=== PATIENT | female | born 1950 | race Caucasian/White ===

== ENCOUNTER 2024-10-04 12:02 | Observation (INO) ==
--- NOTE | 2024-10-04 12:05 | Emergency Department Note ---
HPI - Abdominal Pain General Chief Complaint: GI Bleed Stated Complaint: BLEEDING Time Seen by Provider: 10/04/24 12:05 Source: patient Mode of arrival: walk-in Limitations: no limitations History of Present Illness HPI narrative: 74-year-old female presents to ER with complaint of Diarrhea with rectal bleeding times one day and leg pain that radiates down both legs behind the knees and on top knees then into the calves times three days. Patient is on eliquis and effient blood thinners. MD elicited complaint: abdominal pain and other (Diarrhea with mary jo blood, leg pain) Pertinent past history: myocardial infarction, past UTI and other (Angioplasty) Onset (ago): day(s) (1) Pain Consistency: constant Location: diffuse (Abdominal) and other (Bilateral legs) Severity: moderate Quality: cramping, aching and sharp Radiation: none Migration to: no migration Exacerbating factors: bowel movement and movement Relieving factors: nothing Context: other (None known) Associated symptoms: diarrhea, constipation (Prior to diarrhea starting) and hematochezia Treatments prior to arrival: other (None) Related Data Patient : No Patient lactating: No Home Medications Medication Instructions Recorded Confirmed atorvastatin 80 mg tablet 40 mg PO DAILY 07/23/24 07/23/24 colchicine 0.6 mg tablet 0.6 mg PO DAILY 07/23/24 07/23/24 ergocalciferol (vitamin D2) 1,250 1,250 mcg PO .WEEKLY 07/23/24 07/23/24 mcg (50,000 unit) capsule losartan 50 mg-hydrochlorothiazide 1 tab PO BID 07/23/24 07/23/24 12.5 mg tablet metoprolol tartrate 50 mg tablet 25 mg PO BID 07/23/24 07/23/24 Allergies Allergy/AdvReac Type Severity Reaction Status Date / Time Penicillins Allergy Mild Verified 10/04/24 14:15 hydrocodone Allergy Verified 10/04/24 14:15 Review of Systems Status of ROS 10 or more systems reviewed and unremark able except as noted in history and below Constitutional Denies: fever, chills, change in weight, fatigue, malaise, night sweats, change in sleep pattern or other Eyes Denies: change in vision, blurry vision, blind spots, light sensitivity, eye discomfort, eye discharge, dry eyes, increased production of tears, floaters, seeing flashes or decreased night vision Ears, nose, mouth, and throat Denies: throat pain, neck pain, throat swelling, difficulty swallowing, hoarseness, mouth pain, swelling of lips/tongue, dry mouth, bad breath, ear pain, ear discharge, change in hearing, tinnitus, vertigo, nasal discharge, nasal congestion, nose bleeds or post nasal drip Cardiovascular Denies: chest pain, palpitations, edema, swelling of feet/ankles, lightheadedness, shortness of breath with exertion, shortness of breath when lying down, leg pain with exertion or bluish discoloration of hands/feet Respiratory Denies: shortness of breath, cough, wheezing, stridor, pain on inspiration, change in phlegm color, coughing up blood or chest congestion Gastrointestinal Reports: abdominal pain, diarrhea, change in stool character and blood in stool; Denies: nausea, vomiting, coffee grounds in vomit, heartburn, constipation, bloating, belching, excessive passing of gas, difficulty swallowing, feeling full early, change in bowel habits, painful bowel movements, rectal pain, rectal swelling, rectal itching, mucus in stool, white/light colored stool or fatty stool Genitourinary Denies: painful urination, urinary frequency, urinary urgency, urinary incontinence, blood in urine, difficulty voiding, decreased urine ouput, pelvic pain, painful menstruation, vaginal bleeding, vaginal discharge, irregular period, change in menstrual flow, absence of menstruation, genital lesion, genital itching, vaginal dryness, vaginal odor, pain during intercourse, difficulty conceiving or change in libido Musculoskeletal Reports: extremity pain, muscle cramps and muscle weakness; Denies: back pain, neck pain, extremity swelling, joint pain, limited range of motion, joint swelling or loss of height Integumentary/Breast Denies: rash, itching, redness, skin pain, skin ten derness, skin swelling, sores, new lesion, changing lesion, non-healing lesion, changes in skin color, jaundice, stretch hughes, acne, nail changes, change in hair, breast pain, breast swelling, nipple discharge, breast mass, breast skin changes or change in breast shape Neurological Reports: headache; Denies: numbness in extremities, weakness in extremities, lack of coordination, dizziness, vertigo, confusion, behavioral changes, slurred speech, difficulty communicating thoughts, seizure-like activity or involuntary movements Psychiatric Reports: anxiety; Denies: mood swings, panic attacks, change in sleep pattern, hopelessness, loss of interest, irritability, paranoia, memory loss, difficulty concentrating, visual hallucinations, auditory hallucinations, tactile hallucinations, suicidal ideation or homicidal ideation Endocrine Denies: excessive urination, excessive thirst, fatigue, cold intolerance, excessive sweating, flushing, heat intolerance, deepening of the voice, change in body appearance or change in libido Hematologic/Lymphatic Reports: easy bruising; Denies: easy bleeding or enlarged lymph nodes Allergic/Immunologic Denies: hives, throat swelling, tongue swelling, facial swelling, wheezing, itchy eyes, seasonal allergies or food intolerance PFSH PFSH Medical History Gout Hyperlipidemia A-fib HTN (hypertension) Surgical History History of cholecystectomy H/O: hysterectomy H/O heart artery stent Social History Smoking status: never smoker Feel stressed/tense/nervous/anxious/difficulty sleeping: rather much Life stressors: other (none) Life stressor details: Current medical condition Due to disability, difficulty making decisions: No Exam Constitutional: normal general appearance, distress noted (moderate), abnormal body habitus (obese), no limitations and alert Vital Signs - 24 hr 10/04/24 12:02 10/04/24 12:32 10/04/24 13:01 Temperature 98 F Pulse Rate 54 L 52 L 52 L Respiratory Rate 16 16 16 Blood Pressure 180/73 197/92 184/68 Pulse Oximetry 97 97 97 Oxygen Delivery Me thod Room Air Room Air Room Air HENMT: normocephalic, head/scalp atraumatic, hearing grossly normal bilaterally, external ears normal, nasal mucous membranes normal, external nose normal, oral mucous membranes normal, oropharynx normal, dentition normal and gingiva normal Eyes: PERRL, EOMs intact bilaterally, conjunctivae normal, no scleral icterus, no papilledema, normal visual good by confrontation, alignment normal, periorbital findings normal and no nystagmus Neck/C-Spine: visual inspection normal, trachea midline, cervical spine nontender, cervical full ROM noted and supple Lymph: no lymphadenopathy noted and no lymphedema noted Chest: inspection of chest normal, inspection of breast(s) abnormal (deferred) and palpation of breast(s) abnormal (deferred) Respiratory: breath sounds equal bilaterally, normal respiratory effort, clear to auscultation bilaterally, no wheezes, no rales, no retractions and no use of accessory muscles Cardiovascular: normal heart rate noted, regular rhythm noted, no gallop, no JVD, peripheral pulses 2+ throughout and no additional abnormal heart sounds Gastrointestinal: abdomen normal to inspection, abdomen soft to palpation, tender to palpation (diffuse abd pain) (moderate), distended, normoactive bowel sounds, no hepatosplenomegaly, no masses, no pulsatile mass, no ascites and rectal exam abnormal (deferred) Genitourinary: no CVA tenderness, bladder normal to palpation, vaginal abnormality noted (deferred) and cervical abnormality noted (deferred) Back/Pelvis: spine normal to inspection Extremities: normal to inspection, normal to palpation, tenderness noted, full ROM, no joint enlargement and no deformity Pain in bilateral lower extremities x 3 days, increased pain on palpation and with range of motion. Neurology: technical delivery manager II-XII intact, no movement abnormality noted, no focal motor deficit noted, no sensory deficits noted, gait normal, speech normal, coordination normal, no pronator drift noted, no fasciculations noted and GCS normal Psychiatry: Mental Status Exam documented within this Exam's Psych section mental status grossly normal, oriented x3, thought process normal, cooperative, affect normal, psychomotor activity normal and memory normal Feel stressed/tense/nervous/anxious/difficulty sleeping: rather much Life stressors: other (none) Life stressor details: Current medical condition Due to disability, difficulty making decisions: No Skin: skin color normal, no rash, no lesions, no ecchymosis noted, no wounds, no lacerations, skin turgor normal, no jaundice, no petechiae, no mottling, nails normal and no alopecia Course Course Hospital Course: 74-year-old female that presented to ER with complaint of 1 day onset of diarrhea with mary jo blood in her stool and 3-day onset of bilateral leg pain that goes down the buttocks behind the thighs and around to the top of the knees and then back down into the calves x 3 days has been evaluated by physical exam, CBC, CMP, urinalysis, magnesium, D-dimer, serial troponins, occult blood, urinalysis, urine culture, swabs for flu and COVID, and CT of the abdomen pelvis with contrast and plain film chest x-ray results as noted in charting. Patient's lab work reveals dehydration, urinary tract infection, positive occult stool, negative troponins, chest x-ray reveals no acute cardiopulmonary process, CT of the abdomen pelvis reveals no acute free fluid in the belly, and there is no acute process in the abdomen or pelvis. Patient's EKG is unremarkable and patient continues to have leg pain despite several administrations of medication including Norflex IV 30 mg, 1 mg Dilaudid IV, morphine 4 mg IV, 1 mg Requip p.o., and patient is also received 400 mg Cipro IV for urinary tract infection. Patient will be admitted to the [facility] floor for ongoing IV antibiotic therapy, continue treatment for her rectal bleeding, reevaluation by CT in the morning with p.o. contrast. Patient and family have been made aware of necessity for admission and agree with treatment pathway. Vital Signs Vital signs: Vital Signs Temperature 98 F 10/04/24 12:02 Pulse Rate 54 L 10/04/24 12:02 Respiratory Rate 16 10/04/24 12:02 Blood Pressure 180/73 10/04/24 12:02 Pulse Oximetry 97 10/04/24 12:02 Oxygen Delivery Method Room Air 10/04/24 12:02 Temperature 98 F 10/04/24 12:02 Pulse Rate 52 L 10/04/24 13:01 Respiratory Rate 16 10/04/24 13:01 Blood Pressure 184/68 10/04/24 13:01 Pulse Oximetry 97 10/04/24 13:01 Oxygen Delivery Method Room Air 10/04/24 13:01 MDM - Abdominal Pain MDM Narrative Medical decision making narrative: Medical Decision Making this patient involved physical exam, CBC, CMP, magnesium, D-dimer, serial troponins, occult blood, urinalysis, EKG, chest x- ray, CT of the abdomen pelvis with contrast, and urine culture. Differential Diagnosis Differential diagnosis: Likely abdominal pain, constipation, diverticulitis, gastroenteritis, small bowel obstruction and other (UTI) Medical Records Attestation: I reviewed the patient's medical records. Lab Data Attestation: I reviewed the patient's lab results. Labs: Lab Results 10/04/24 10/04/24 10/04/24 Range/Units 12:30 13:02 13:20 WBC 9.4 H (4.3-9.3) K/uL RBC 4.6 (4.00-5.50) M/uL Hgb 14.3 (12.5-15.8) gm/dL Hct 42.9 (35.9-46.7) % MCV 93.7 (81.0-93.7) fl MCH 31.2 (27.6-32.2) pg MCHC 33.2 (33.1-35.3) g/dl RDW 13.7 (11.4-14.2) % Plt Count 269 (152-353) K/uL MPV 8.3 (6.9-10.8) fl Gran % 58.0 (47.8-71.3) % Lymph % (Auto) 28.5 (20.0-43.0) % [place] % (Auto) 11.2 H (3.6-9.8) % Eos % (Auto) 1.8 (0.4-2.8) % Baso % (Auto) 0.5 (0.1-0.85) Lymph # (Auto) 2.7 (1.1-3.1) [place] # (Auto) 1.0 L (1.1-3.1) Eos # (Auto) 0.2 (0.0-0.2) Baso # (Auto) 0.0 (0.0-0.1) Absolute Gran (auto) 5.4 (2.3-6.0) Sodium 138 (136-145) mmol/L Potassium 3.6 (3.6-5.2) mmol/L Chloride 103.0 (98-107) mmol/L Carbon Dioxide 31 (21-32) mmol/L Anion Gap 4.0 (4-14) mEq/L BUN 27 H (7-18) mg/dL Creatinine 1.4 H (0.6-1.3) mg/dL Estimated GFR 39.0 (>59.9) Glucose 90 (70-110) mg/dL Calcium 8.9 (8.5-10.1) mg/dL Magnesium 1.8 (1.8-2.4) mg/dL Total Bilirubin 0.48 (0.0-1.0) mg/dL AST 29 (15-37) U/L ALT 51 (30-65) U/L Alkaline Phosphatase 129 (50-136) U/L Troponin I High Sens 20.20 (4.0-60.4) ng/L Total Protein 6.6 (6.4-8.2) g/dL Albumin 3.3 L (3.4-5.0) g/dL Urine Color Yellow (STRAW/YELL.) Urine Appearance Clear (CLEAR) Ur Specific [place] 1.020 (1.001-1.035) Urine Protein Negative (NEGATIVE) Urine Glucose (UA) Normal (NORMAL) Urine Ketones Negative (NEGATIVE) Urine Occult Blood 4+ (NEG - TRACE) Urine Nitrite Negative (NEGATIVE) Urine Bilirubin Negative (NEGATIVE) Urine Urobilinogen Normal (NORMAL) Ur Leukocyte Esterase Positive (NEGATIVE) Urine RBC 5 - 10 (0 - 5) Urine WBC 2 - 5 ( 0 - 5) Ur Epithelial Cells Few (Few/HPF) Amorphous Sediment Negative (Negative) Urine Bacteria Negative (Negative) Urine Mucus Negative (Negative) Urine Trichomonas Negative (Negative) Urine Yeast Negative (Negative) Fluid pH 5.0 (5 - 9) Stl Occ Bld (IFOB) Scr Positive (Negative) Imaging Data Imaging ordered: Chest x-ray and CT scan - abdomen Attestation: I have reviewed the pertinent imaging results. Radiologist's impression: EXAM: XR CHEST 1V HISTORY: dyspneadyspnea; COMPARISON: July 23, 2024 FINDINGS: The trachea is midline. The cardiac silhouette is mildly enlarged. The lungs are clear without focal infiltrate or effusion. The bony thorax is unremarkable. IMPRESSION: No acute cardiopulmonary disease. THIS IS AN ELECTRONICALLY VERIFIED FINAL REPORT 10/04/2024 12:52 PM - Electronically signed by Tanja Torres MD EXAM: CT ABDOMEN AND PELVIS WITH CONTRAST HISTORY: NVD, Rectal bleedingNVD, Rectal bleeding; COMPARISON: None. TECHNIQUE: Axial CT images were obtained through the abdomen and pelvis after the intravenous administration of contrast. Coronal and sagittal reformatted images were included. Informed written consent was obtained prior to contrast administration. All CT scans at this facility use dose modulation, iterative reconstruction, and/or weight based dosing when appropriate to reduce radiation dose to as low as reasonably achievable. FINDINGS: Clear lung bases. Small hiatal hernia. Small subcentimeter liver cysts. Prior cholecystectomy. No biliary dilatation. Spleen, pancreas, adrenals, and kidneys are unremarkable. Moderate aortoiliac atherosclerosis without aneurysm. No abnormally distended or focally thickened bowel loops. Moderate scattered colonic diverticula without surrounding inflammation. No free peritoneal air or fluid. Unremarkable urinary bladder. Absent uterus. No free pelvic fluid. Fat containing supraumbilical ventral hernia. No acute osseous findings. Mo derate lumbar spondylosis. IMPRESSION: No acute findings in the abdomen or pelvis. Moderate colonic diverticulosis without surrounding inflammation THIS IS AN ELECTRONICALLY VERIFIED FINAL REPORT 10/04/2024 2:25 PM - Electronically signed by Geronimo Olson MD ECG Data Attestation: I have reviewed the pertinent ECG results. Interpretation: Sinus bradycardia rate 50 RR 1208 CO 179 P axis 48 QRS 4 T -2 Discharge Plan Discharge Patient Disposition: Admitted As Observation Condition: Stable Chief Complaint: GI Bleed Clinical Impression: Hematochezia, Lower gastrointestinal hemorrhage, Internal hemorrhoid, bleeding, Acute UTI, Leukocytosis, Constipation, Intractable neuropathic pain of left lower extremity, Intractable neuropathic pain of right lower extremity Prescriptions: No Action losartan-hydrochlorothiazide 50-12.5 mg tablet 1 tab PO BID Patient Comments: TAKE ONE TABLET BY MOUTH TWICE DAILY metoprolol tartrate 50 mg tablet 25 mg PO BID Patient Comments: TAKE ONE TABLET BY MOUTH TWICE DAILY atorvastatin 80 mg tablet 40 mg PO DAILY Patient Comments: TAKE ONE TABLET BY MOUTH EVERY DAY ergocalciferol (vitamin D2) 1,250 mcg (50,000 unit) capsule 1,250 mcg PO .WEEKLY Patient Comments: TAKE ONE CAPSULE BY MOUTH EVERY WEEK colchicine 0.6 mg tablet 0.6 mg PO DAILY Patient Comments: TAKE TWO TABLETS BY MOUTH now THEN take ONE tab ONE hours LATER DIRECTED Print Language: Kyrgyz Referrals: Provider,NO PCP [Physician] - Time of Disposition: 17:00
[2024-10-04 12:39] LABS: Basophils%(Percent) Auto 0.5 (0.1-0.85); Eosinophils#(Absolute)Auto 0.2 (0.0-0.2); Eosinophils%(Percent) Auto 1.8 % (0.4-2.8); Granulocytes#(Absolute)- Auto 5.4 (2.3-6.0); Hematocrit 42.9 % (35.9-46.7); Mean Corpuscular Volume 93.7 fl (81.0-93.7); Monocytes %(Percent)- Auto 11.2 % (3.6-9.8); Platelet Count 269 K/uL (152-353); White Blood Count 9.4 K/uL (4.3-9.3)
[2024-10-04 12:48] LABS: Potassium 3.6 mmol/L (3.6-5.2)
[2024-10-04] MEDS ORDERED: MORPHINE SULFATE 2 MG/ML CARTRIDGE IV ONE (13:42)
[2024-10-04] MEDS ORDERED: ONDANSETRON HCL/PF 4 MG/2 ML VIAL ONE ×2 (13:42→17:44)
[2024-10-04 13:46] LABS: Urine Appearance CLEAR (CLEAR); Urine Blood 4+ (NEG - TRACE); Urine Color YELLOW (STRAW/YELL.); Urine Urobilinogen Normal (NORMAL)
[2024-10-04] MEDS: MORPHINE SULFATE 2 MG/ML CARTRIDGE IV ONE (13:46)
[2024-10-04 13:47] LABS: Urine Amorphous Sediment Negative (Negative); Urine Yeast Negative (Negative)
[2024-10-04] MEDS: ONDANSETRON HCL/PF 4 MG/2 ML VIAL IVP ONE ×2 (13:47→17:46)
[2024-10-04] MEDS ORDERED: CIPROFLOXACIN 400 MG/200ML-D5W 400 MG/200 ML PIGGYBACK IV ONE (14:37)
[2024-10-04] MEDS ORDERED: ORPHENADRINE CITRATE 30 MG/ML VIAL ONE (14:45)
[2024-10-04] MEDS: ORPHENADRINE CITRATE 30 MG/ML VIAL IVP ONE (14:50)
[2024-10-04] MEDS: CIPROFLOXACIN 400 MG/200ML-D5W 400 MG/200 ML PIGGYBACK IV ONE (14:51)
[2024-10-04] MEDS: ROPINIROLE HCL 0.5 MG TABLET PO ONE (15:19)
[2024-10-04] MEDS ORDERED: ONDANSETRON HCL/PF 4 MG/2 ML VIAL INJ PRN (17:49)
[2024-10-04] MEDS ORDERED: polyethylene glycoL 3350 17 GM POWD.PACK PO PRN (17:49)
[2024-10-04] MEDS ORDERED: ACETAMINOPHEN 1000 MG/100 ML 1,000 MG/100 ML IV.SOLN IV PRN (17:54)
[2024-10-04] MEDS: PROMETHAZINE HCL 25 MG in 0.9 % SODIUM CHLORIDE 50 ML IV PRN (20:46)
[2024-10-04] MEDS: 0.9 % SODIUM CHLORIDE 1000 ML 1,000 ML IV SCH (20:55)
[2024-10-04] MEDS: CIPROFLOXACIN 400 MG/200ML-D5W 400 MG/200 ML PIGGYBACK IV SCH (21:08)
[2024-10-04] MEDS: GABAPENTIN 400 MG CAPSULE PO SCH (21:08)
[2024-10-04] MEDS: PANTOPRAZOLE SODIUM 40 MG TABLET.DR PO SCH (21:09)
[2024-10-04] MEDS: KETOROLAC 30 MG/ML INJ VIAL IVP PRN (21:11)
[2024-10-04] MEDS: hydroCHLOROthiazide 25 MG TABLET PO STA (22:08)
[2024-10-04] MEDS: LOSARTAN POTASSIUM 50 MG TABLET PO ONE (22:53)
[2024-10-04] MEDS: ATORVASTATIN CALCIUM 40 MG TABLET PO ONE (22:53)
[2024-10-04] MEDS: METOPROLOL TARTRATE 25 MG TABLET PO ONE (22:54)
[2024-10-05] MEDS ORDERED: ATORVASTATIN CALCIUM 10 MG TABLET ONE (05:29)
[2024-10-05] MEDS ORDERED: LOSARTAN POTASSIUM 50 MG TABLET ONE (05:29)
[2024-10-05] MEDS ORDERED: hydroCHLOROthiazide 25 MG TABLET PO ONE (05:30)
[2024-10-05 08:13] LABS: Basophils%(Percent) Auto 0.4 (0.1-0.85); Eosinophils#(Absolute)Auto 0.2 (0.0-0.2); Eosinophils%(Percent) Auto 2.2 % (0.4-2.8); Granulocytes % - Auto 59.9 % (47.8-71.3); Granulocytes#(Absolute)- Auto 4.6 (2.3-6.0); Hematocrit 40.9 % (35.9-46.7); Mean Corpuscular Volume 94.1 fl (81.0-93.7); Monocytes #(Absolute)- Auto 0.5 (1.1-3.1); Monocytes %(Percent)- Auto 6.6 % (3.6-9.8); Platelet Count 222 K/uL (152-353); White Blood Count 7.6 K/uL (4.3-9.3)
[2024-10-05 08:29] LABS: Potassium 3.8 mmol/L (3.6-5.2)
[2024-10-05 08:32] LABS: INR 1.05
[2024-10-05] MEDS: polyethylene glycoL 3350 17 GM POWD.PACK PO STA (09:30)
--- NOTE | 2024-10-05 10:40 | History & Physical Report ---
H&P: HPI History of Present Illness Chief complaint: uti,hematachezia,dehydration,constipation,intracta Narrative: Pleasant 74 year old female admitted for Diarrhea with mary jo blood x 1, abdominal pain, and bilateral leg pain down back of legs to behind knees x 1 days. She states she had 5 loose watery bowel movements before coming to ER and one of them was with a lot of blood which prompted her visit. She has had no bowel movement since admission and no bleeding since admission. She was admitted for observation. CT abdomen shows heavy stool burden throughout therefore watery stools probably secondary to mild constipation. She denies fever, chills, night sweats, no headache, dizziness or blurred vision. NO chest pain, cough or sob. No hematemesis, hematuria. Review of Systems Status of ROS 10 or more systems reviewed and unremark able except as noted in history and below Constitutional Denies: fever, chills, change in weight, fatigue, malaise, night sweats, change in sleep pattern or other Eyes Denies: change in vision, blurry vision, blind spots, light sensitivity, eye discomfort, eye discharge, dry eyes, increased production of tears, floaters, seeing flashes or decreased night vision Ears, nose, mouth, and throat Denies: throat pain, neck pain, throat swelling, difficulty swallowing, hoarseness, mouth pain, swelling of lips/tongue, dry mouth, bad breath, ear pain, ear discharge, change in hearing, tinnitus, vertigo, nasal discharge, nasal congestion, nose bleeds or post nasal drip Cardiovascular Denies: chest pain, palpitations, edema, swelling of feet/ankles, lightheadedness, shortness of breath with exertion, shortness of breath when lying down, leg pain with exertion or bluish discoloration of hands/feet Respiratory Denies: shortness of breath, cough, wheezing, stridor, pain on inspiration, change in phlegm color, coughing up blood or chest congestion Gastrointestinal Reports: abdominal pain, diarrhea, change in stool character and blood in stool; Denies: nausea, vomiting, coffee grounds in vomit, heartburn, constipation, bloating, belching, excessive passing of gas, difficulty swallowing, feeling full early, change in bowel habits, painful bowel movements, rectal pain, rectal swelling, rectal itching, mucus in stool, white/light colored stool or fatty stool Genitourinary Denies: painful urination, urinary frequency, urinary urgency, urinary incontinence, blood in urine, difficulty voiding, decreased urine ouput, pelvic pain, painful menstruation, vaginal bleeding, vaginal discharge, irregular period, change in menstrual flow, absence of menstruation, genital lesion, genital itching, vaginal dryness, vaginal odor, pain during intercourse, difficulty conceiving or change in libido Musculoskeletal Reports: extremity pain, muscle cramps and muscle weakness; Denies: back pain, neck pain, extremity swelling, joint pain, limited range of motion, joint swelling or loss of height Integumentary/Breast Denies: rash, itching, redness, skin pain, skin tenderness, skin swelling, sores, new lesion, changing lesion, non-healing lesion, changes in skin color, jaundice, stretch hughes, acne, nail changes, change in hair, breast pain, breast swelling, nipple discharge, breast mass, breast skin changes or change in breast shape Neurological Reports: headache; Denies: numbness in extremities, weakness in extremities, lack of coordination, dizziness, vertigo, confusion, behavioral changes, slurred speech, difficulty communicating thoughts, seizure-like activity or involuntary movements Psychiatric Reports: anxiety; Denies: mood swings, panic attacks, change in sleep pattern, hopelessness, loss of interest, irritability, paranoia, memory loss, difficulty concentrating, visual hallucinations, auditory hallucinations, tactile hallucinations, suicidal ideation or homicidal ideation Endocrine Denies: excessive urination, excessive thirst, fatigue, cold intolerance, excessive sweating, flushing, heat intolerance, deepening of the voice, change in body appearance or change in libido Hematologic/Lymphatic Reports: easy bruising; Denies: easy bleeding or enlarged lymph nodes Allergic/Immunologic Denies: hives, throat swelling, tongue swelling, facial swelling, wheezing, itchy eyes, seasonal allergies or food intolerance PFSH PFSH Medical History (Updated 10/05/24 @ 10:38 by Nu Ugalde NP) Gout Hyperlipidemia A-fib HTN (hypertension) Surgical History History of cholecystectomy H/O: hysterectomy H/O heart artery stent Social History Smoking status: never smoker Problems where you live: no known problems Highest level of school completed/degree received: high school Feel stressed/tense/nervous/anxious/difficulty sleeping: rather much Life stressors: other (none) Life stressor details: Current medical condition Due to disability, difficulty making decisions: No Gender Identity: female Meds Home Medications and Allergies Home Medications Medication Instructions Recorded Confirmed Type atorvastatin 80 mg tablet 40 mg PO DAILY 07/23/24 10/04/24 History colchicine 0.6 mg tablet 0.6 mg PO DAILY 07/23/24 10/04/24 History ergocalciferol (vitamin D2) 1,250 1,250 mcg PO .WEEKLY 07/23/24 10/04/24 History mcg (50,000 unit) capsule losartan 50 mg-hydrochlorothiazide 1 tab PO BID 07/23/24 10/04/24 History 12.5 mg tablet metoprolol tartrate 50 mg tablet 25 mg PO BID 07/23/24 07/23/24 History apixaban 5 mg tablet (Eliquis) 2.5 mg PO BID 10/04/24 10/04/24 History prasugrel HCl 10 mg tablet 10 mg PO DAILY 10/04/24 10/04/24 History sotalol 80 mg tablet 40 mg PO BID 10/04/24 10/04/24 History Allergies Allergy/AdvReac Type Severity Reaction Status Date / Time Penicillins Allergy Mild Verified 10/04/24 14:15 hydrocodone Allergy Verified 10/04/24 14:15 Exam Constitutional: normal general appearance, no apparent distress and alert Vital Signs - 24 hr 10/04/24 12:02 10/04/24 12:32 10/04/24 13:01 Temperature 98 F Pulse Rate 54 L 52 L 52 L Pulse Rate [Brachi al] Respiratory Rate 16 16 16 Blood Pressure 180/73 197/92 184/68 Blood Pressure [Le ft Arm] Pulse Oximetry 97 97 97 Oxygen Delivery Me thod Room Air Room Air Room Air 10/04/24 18:25 10/04/24 19:52 10/04/24 20:00 Temperature 98 F 97.6 F Pulse Rate 52 L Pulse Rate [Brachi al] 38 L Respiratory Rate 16 16 Blood Pressure 145/59 Blood Pressure [Le ft Arm] 154/52 Pulse Oximetry 97 97 Oxygen Delivery Me thod Room Air Room Air 10/05/24 00:01 10/05/24 04:00 10/05/24 08:00 Temperature 97.8 F 97.6 F 97.6 F Pulse Rate Pulse Rate [Brachi al] 41 L 45 L 44 L Respiratory Rate 16 16 19 Blood Pressure Blood Pressure [Le ft Arm] 144/55 178/68 191/69 Pulse Oximetry 96 98 99 Oxygen Delivery Me thod Room Air Room Air Room Air HENMT: normocephalic and head/scalp atraumatic Eyes: EOMs intact bilaterally, conjunctivae normal and no scleral icterus Neck/C-Spine: visual inspection normal and trachea midline Lymph: no lymphadenopathy noted and no lymphedema noted Chest: inspection of chest normal Respiratory: breath sounds equal bilaterally, normal respiratory effort, clear to auscultation bilaterally, no wheezes, no rales, no retractions and no use of accessory muscles Cardiovascular: normal heart rate noted, regular rhythm noted, no gallop, no rub, no murmur and no JVD Gastrointestinal: abdomen normal to inspection and abdomen soft to palpation Genitourinary: deferred Back/Pelvis: spine normal to inspection Extremities: normal to inspection, normal to palpation and no tenderness (tenderness in calves when squeezed ) Neurology: no movement abnormality noted, no focal motor deficit noted, speech normal, coordination normal and no fasciculations noted Psychiatry: mental status grossly normal, oriented x3, thought process normal, cooperative and affect normal Skin: skin color normal, no rash and no lesions Assessment and Plan Assessment and Plan (1) Acute constipation: Code(s): K59.00 - Constipation, unspecified (2) Hyperlipidemia: Qualifiers: Hyperlipidemia type: unspecified Qualified Code(s): E78.5 - Hyperlipidemia, unspecified Code(s): E78.5 - Hyperlipidemia, unspecified (3) Gout: Qualifiers: Gout site: unspecified site Gout etiology: unspecified cause Chronicity: unspecified Qualified Code(s): M10.9 - Gout, unspecified Code(s): M10.9 - Gout, unspecified (4) A-fib: Qualifiers: Atrial fibrillation type: unspecified Qualified Code(s): I48.91 - Unspecified atrial fibrillation Code(s): I48.91 - Unspecified atrial fibrillation Plan Monitor for bloody stool when patient has bowel movement Repeat CBC, CMP in am Restart Home Meds Start Miralax to relieve stool burden Cipro IV Gabapentin Protonix PRN meds: Tylenol Hydromorphone Ketorolac Zofran Promethazine Results Labs Labs: CBC 10/04/24 10/05/24 Range/Units 12:30 06:00 WBC 9.4 H 7.6 (4.3-9.3) K/uL RBC 4.6 4.3 (4.00-5.50) M/uL Hgb 14.3 13.5 (12.5-15.8) gm/dL Hct 42.9 40.9 (35.9-46.7) % Plt Count 269 222 (152-353) K/uL Gran % 58.0 59.9 (47.8-71.3) % Lymph % (Auto) 28.5 30.9 (20.0-43.0) % [place] % (Auto) 11.2 H 6.6 (3.6-9.8) % Eos % (Auto) 1.8 2.2 (0.4-2.8) % Baso % (Auto) 0.5 0.4 (0.1-0.85) Lymph # (Auto) 2.7 2.4 (1.1-3.1) [place] # (Auto) 1.0 L 0.5 L (1.1-3.1) Eos # (Auto) 0.2 0.2 (0.0-0.2) Baso # (Auto) 0.0 0.0 (0.0-0.1) Absolute Gran (auto) 5.4 4.6 (2.3-6.0) CMP 10/04/24 10/05/24 12:30 08:20 Sodium 138 142 Potassium 3.6 3.8 Chloride 103.0 105.0 Carbon Dioxide 31 30 BUN 27 H 20 H Creatinine 1.4 H 1.2 Glucose 90 101 Calcium 8.9 9.0 Liver Function 10/04/24 Range/Units 12:30 Total Bilirubin 0.48 (0.0-1.0) mg/dL AST 29 (15-37) U/L ALT 51 (30-65) U/L Alkaline Phosphatase 129 (50-136) U/L Albumin 3.3 L (3.4-5.0) g/dL Urine 10/04/24 13:02 Urine Color Yellow Urine Appearance Clear Ur Specific Chromo 1.020 Urine Protein Negative Urine Glucose (UA) Normal
[2024-10-05] MEDS: ATORVASTATIN CALCIUM 40 MG TABLET PO SCH (14:36)
[2024-10-05] MEDS: COLCHICINE 0.6 MG TABLET PO SCH (14:36)
[2024-10-05] MEDS: polyethylene glycoL 3350 17 GM POWD.PACK PO ONE (17:59)
[2024-10-05 23:54] VITALS: RESP 17
[2024-10-06 06:54] LABS: Basophils%(Percent) Auto 0.6 (0.1-0.85); Eosinophils#(Absolute)Auto 0.2 (0.0-0.2); Eosinophils%(Percent) Auto 3.3 % (0.4-2.8); Granulocytes % - Auto 45.4 % (47.8-71.3); Granulocytes#(Absolute)- Auto 2.6 (2.3-6.0); Hematocrit 37.8 % (35.9-46.7); Mean Corpuscular Volume 93.1 fl (81.0-93.7); Monocytes #(Absolute)- Auto 0.7 (1.1-3.1); Platelet Count 183 K/uL (152-353); White Blood Count 5.8 K/uL (4.3-9.3)
[2024-10-06 07:02] LABS: Potassium 4.1 mmol/L (3.6-5.2)
[2024-10-06 08:59] VITALS: BP 165/71; PULSE 45; TEMP 97.9
--- NOTE | 2024-10-06 09:01 | Discharge Summary ---
DS: Providers Provider Date of admission: 10/04/24 18:09 Primary care physician: Aura Riley NP Attending physician on discharge: Nu Ugalde Discharging clinician: Nu Ugalde Anticipated date of discharge: 10/06/24 DS: Diagnosis Discharge Diagnosis (1) Acute constipation: (2) Hyperlipidemia: Qualifiers: Hyperlipidemia type: unspecified Qualified Code(s): E78.5 - Hyperlipidemia, unspecified (3) Gout: Qualifiers: Gout site: unspecified site Gout etiology: unspecified cause Chr onicity: unspecified Qualified Code(s): M10.9 - Gout, unspecified (4) A-fib: Qualifiers: Atrial fibrillation type: unspecified Qualified Code(s): I48.91 - Unspecified atrial fibrillation Plan Patient had 5 large bowel movements after miralax administration. Reports no abdominal pain, no leg pain today. Will discharge home with 2 week prescription of Gabapentin for leg pain. She will follow up with PCP in 2 weeks. Drink plenty of fluids. No blood in stool. Rectal bleed likely due to hemorrhoids. DS: Summary Hospital Course Hospital Course: 74-year-old female that presented to ER with complaint of 1 day onset of diarrhea with mary jo blood in her stool and 3-day onset of bilateral leg pain that goes down the buttocks behind the thighs and around to the top of the knees and then back down into the calves x 3 days has been evaluated by physical exam, CBC, CMP, urinalysis, magnesium, D-dimer, serial troponins, occult blood, urinalysis, urine culture, swabs for flu and COVID, and CT of the abdomen pelvis with contrast and plain film chest x-ray results as noted in charting. Patient's lab work reveals dehydration, urinary tract infection, positive occult stool, negative troponins, chest x-ray reveals no acute cardiopulmonary process, CT of the abdomen pelvis reveals no acute free fluid in the belly, and there is no acute process in the abdomen or pelvis. Patient's EKG is unremarkable and patient continues to have leg pain despite several administrations of medication including Norflex IV 30 mg, 1 mg Dilaudid IV, morphine 4 mg IV, 1 mg Requip p.o., and patient is also received 400 mg Cipro IV for urinary tract infection. [facility] IV antibiotic therapy, continue treatment for her rectal bleeding, reevaluation by CT in the morning with p.o. contrast. Patient and family have been made aware of necessity for admission and agree with treatment pathway. Status at Discharge Functional status at discharge: independent ambulation Overall status at discharge: patient is back to baseline Time Spent with Patient Time attestation: Total time spent providing and/or coordinating discharge services:40 Time spent: greater than 30 minutes Exam Constitutional: normal general appearance, no apparent distress, average body habitus and no limitations Vital Signs - 24 hr 10/05/24 11:51 10/05/24 16:26 10/05/24 20:00 Temperature 97.4 F L 97.5 F L Pulse Rate [Brachi al] 42 L 47 L Pulse Rate [Left B rachial] 48 L Respiratory Rate 19 19 Blood Pressure [Le ft Arm] 150/67 151/56 Pulse Oximetry 98 96 Oxygen Delivery Me thod Room Air Room Air 10/05/24 20:00 10/05/24 23:53 10/06/24 03:48 Temperature 97.6 F 96.5 F L 97.6 F Pulse Rate [Brachi al] 46 L 46 L Pulse Rate [Left B rachial] 41 L Respiratory Rate 18 17 17 Blood Pressure [Le ft Arm] 161/56 123/51 184/67 Pulse Oximetry 98 98 99 Oxygen Delivery Me thod Room Air Room Air Room Air HENMT: normocephalic and head/scalp atraumatic Eyes: PERRL, EOMs intact bilaterally, conjunctivae normal, no scleral icterus, no papilledema, normal visual good by confrontation, alignment normal, periorbital findings normal and no nystagmus Neck/C-Spine: visual inspection normal, trachea midline, cervical spine nontender, cervical full ROM noted and supple Lymph: no lymphadenopathy noted and no lymphedema noted Chest: inspection of chest normal, inspection of breast(s) abnormal (deferred) and palpation of breast(s) abnormal (deferred) Respiratory: breath sounds equal bilaterally, normal respiratory effort, clear to auscultation bilaterally, no wheezes, no rales, no retractions and no use of accessory muscles Cardiovascular: normal heart rate noted, regular rhythm noted, no gallop, no rub, no murmur, no JVD, peripheral pulses 2+ throughout and no additional abnormal heart sounds Gastrointestinal: abdomen normal to inspection, abdomen soft to palpation, nontender to palpation (diffuse abd pain), nondistended, normoactive bowel sounds, no hepatosplenomegaly, no masses, no pulsatile mass, no ascites and rectal exam abnormal (deferred) Genitourinary: no CVA tenderness, bladder normal to palpation, vaginal abnormality noted (deferred) and cervical abnormality noted (deferred) deferred Back/Pelvis: spine normal to inspection Extremities: normal to inspection, normal to palpation, no tenderness (ten derness in calves when squeezed ), full ROM, no joint enlargement and no deformity Pain in bilateral lower extremities x 3 days, increased pain on palpation and with range of motion. Neurology: shirt hemmer II-XII intact, no movement abnormality noted, no focal motor deficit noted, no sensory deficits noted, gait normal, speech normal, coordination normal, no pronator drift noted, no fasciculations noted and GCS normal Psychiatry: Mental Status Exam documented within this Exam's Psych section mental status grossly normal, oriented x3, thought process normal, cooperative, affect normal, psychomotor activity normal and memory normal Skin: skin color normal, no rash, no lesions, no ecchymosis noted, no wounds, no lacerations, skin turgor normal, no jaundice, no petechiae, no mottling, nails normal and no alopecia DS: Data Data Completed and Pending Labs on day of discharge: Labs from last 24 hours 10/06/24 06:45 WBC 5.8 RBC 4.1 Hgb 12.5 Hct 37.8 MCV 93.1 MCH 30.7 MCHC 32.9 L RDW 13.5 Plt Count 183 MPV 8.3 Gran % 45.4 L Lymph % (Auto) 38.7 [place] % (Auto) 12.0 H Eos % (Auto) 3.3 H Baso % (Auto) 0.6 Lymph # (Auto) 2.2 [place] # (Auto) 0.7 L Eos # (Auto) 0.2 Baso # (Auto) 0.0 Absolute Gran (auto) 2.6 Sodium 143 Potassium 4.1 Chloride 108.0 H Carbon Dioxide 29 Anion Gap 6.0 BUN 22 H Creatinine 1.3 Estimated GFR 42.6 Glucose 85 Calcium 8.6 Discharge Plan Discharge Disposition: Home, Self-Care Condition: Stable Discharge Medications: New gabapentin 400 mg Capsule 400 mg PO BID 15 Days Qty: 30 0RF Continued Eliquis 5 mg tablet 2.5 mg PO BID Patient Comments: TAKE ONE TABLET BY MOUTH TWICE DAILY prasugrel HCl 10 mg tablet 10 mg PO DAILY Patient Comments: TAKE ONE TABLET BY MOUTH EVERY DAY sotalol 80 mg tablet 40 mg PO BID Patient Comments: TAKE ONE-HALF TABLET BY MOUTH TWICE DAILY losartan-hydrochlorothiazide 50-12.5 mg tablet 1 tab PO BID Patient Comments: TAKE ONE TABLET BY MOUTH TWICE DAILY metoprolol tartrate 50 mg tablet 25 mg PO BID Patient Comments: TAKE ONE TABLET BY MOUTH TWICE DAILY atorvastatin 80 mg tablet 40 mg PO DAILY Patient Comments: TAKE ONE TABLET BY MOUTH EVERY DAY ergocalciferol (vitamin D2) 1,250 mcg (50,000 unit) capsule 1,250 mcg PO .WEEKLY Patient Comments: TAKE ONE CAPSULE BY MOUTH EVERY WEEK colchicine 0.6 mg tablet 0.6 mg PO DAILY Patient Comments: TAKE TWO TABLETS BY MOUTH now THEN take ONE tab ONE hours LATER DIRECTED Activity: resume usual activities as tolerated Diet: advance to your usual diet Assessment: Diarrhea secondary to constipation, Rectal bleeding likely secondary to hemorrhoid. Notify PCP if any new rectal bleeding occurs. Consume high fiber diet. Drink plenty of fluids. Plan of Treatment: High fiber diet, minimun of 64 ounces of fluid intake daily. Gabapentin sent to pharmacy for leg pain. Follow up with PCP Patient Instructions: Constipation (DC), High Fiber Diet (DC) Forms: Portal/Health Info Access Inst Follow-Ups: Provider,NO PCP [Physician] -
== END 2024-10-06 10:27 | disposition home or self-care (01) ==
LOC: MS 12:02 → ED 12:02 → MS 18:25
PROVIDERS: ADMIT Nurse Practitioner Family; ATTEND Nurse Practitioner Family
DX: K92.1 Melena; K44.9 Diaphragmatic hernia without obstruction or gangrene; Z95.5 Presence of coronary angioplasty implant and graft; Z88.5 Allergy status to narcotic agent; Z86.79 Personal history of other diseases of the circulatory system; Z87.440 Personal history of urinary (tract) infections; Z79.01 Long term (current) use of anticoagulants; I11.9 Hypertensive heart disease without heart failure; E78.5 Hyperlipidemia, unspecified; Z88.0 Allergy status to penicillin; M10.9 Gout, unspecified; Z79.899 Other long term (current) drug therapy; E86.0 Dehydration; I25.2 Old myocardial infarction; K59.00 Constipation, unspecified; K57.30 Diverticulosis of large intestine without perforation or abscess without bleeding; K76.89 Other specified diseases of liver